=== PATIENT | male | born 1990 | race Caucasian/White ===

== ENCOUNTER → 2022-08-12 | Outpatient (REF) | payer OTHER | LOC: M LAB REF 20:53 | PROVIDERS: ATTEND Nurse Practitioner Family | DX: M79.674 Pain in right toe(s) (principal) ==

== ENCOUNTER → 2024-06-25 | Outpatient (REF) | payer OTHER ==
[2024-06-25 15:08] LABS: BASO % 0.3 % (0.0-1.0); EOS # 0.3 10^3/uL (0.0-0.5); EOS % 4.2 % (0.0-3.0); HEMATOCRIT 41.7 % (42.0-52.0); HEMOGLOBIN 13.9 g/dl (13.5-17.5); LYMPH % 16.7 % (24.0-44.0); MEAN CORPUSCULAR HEMOGLOBIN 30.3 pg (27.0-33.0); MEAN CORPUSCULAR HGB CONC 33.3 g/dl (32.0-36.5); MONO # 0.5 10^3/uL (0.0-0.8); MONO % 8.5 % (2.0-8.0); NEUTROPHILS # 4.2 10^3/uL (1.5-8.5); PLATELET COUNT, AUTOMATED 186 10^3/uL (150-450); RED BLOOD COUNT 4.58 10^6/uL (4.30-6.10)
[2024-06-25 15:13] LABS: ERYTHROCYTE SEDIMENTATION RATE 13 mm/hr (0-15)
[2024-06-25 15:26] LABS: URIC ACID 8.4 MG/DL (3.7-9.2)
[2024-06-25 15:30] LABS: ALKALINE PHOSPHATASE 119 U/L (40-129); ALT/SGPT 51 U/L (7.0-40); AST/SGOT 59 U/L (<34); BILIRUBIN,DIRECT 0.1 MG/DL (<0.4); BILIRUBIN,TOTAL 0.4 MG/DL (0.3-1.2); BLOOD UREA NITROGEN 8 MG/DL (9-23); C REACTIVE PROTEIN QUANTITATIV 0.93 MG/DL (<1.0); CALCIUM LEVEL 9.3 MG/DL (8.5-10.1); CARBON DIOXIDE LEVEL 30 MMOL/L (20-31); CHLORIDE LEVEL 106 MMOL/L (98-107); CREATININE FOR GFR 0.79 MG/DL (0.70-1.30); GLOMERULAR FILTRATION RATE > 60.0 (>60); GLUCOSE, FASTING 101 MG/DL (60-100); POTASSIUM SERUM 3.7 MMOL/L (3.5-5.1); SODIUM LEVEL 145 MMOL/L (136-145); TOTAL PROTEIN 7.3 G/DL (5.7-8.2)
== END ==
LOC: M SFHCRHEU 10:00
PROVIDERS: ATTEND Internal Medicine
DX: M10.00 Idiopathic gout, unspecified site (principal)

== ENCOUNTER → 2024-07-20 | Outpatient (CLI) | payer OTHER | LOC: M PLAIMG 07:15 | PROVIDERS: ATTEND Internal Medicine | DX: M79.641 Pain in right hand (principal); M79.642 Pain in left hand; M85.842 Other specified disorders of bone density and structure, left hand ==

== ENCOUNTER → 2024-08-30 | Outpatient (CLI) | payer OTHER | LOC: M RAD 06:53 | PROVIDERS: ATTEND Internal Medicine | DX: R74.8 Abnormal levels of other serum enzymes (principal) ==